=== PATIENT | male | born 1995 | race Caucasian/White ===

== ENCOUNTER 2020-05-27 11:35 | Emergency (ER) | payer SELFPAY ==
[~2020-05-27] VITALS: Ht 190.5 cm; Wt 82.6 kg
[2020-05-27 11:38] VITALS: BP 125/95
--- NOTE | 2020-05-27 14:34 | NUR ---
Patient given discharge instructions and they have confirmed that they understand the instructions. Patient ambulatory with steady gait.
== END 2020-05-27 14:19 | disposition home or self-care (01) ==
LOC: ED 13:34
DX: S62.366A Nondisplaced fracture of neck of fifth metacarpal bone, right hand, initial encounter for closed fracture (principal); M79.641 Pain in right hand; W22.09XA Striking against other stationary object, initial encounter; Y93.89 Activity, other specified; Y92.89 Other specified places as the place of occurrence of the external cause; Y99.8 Other external cause status
CPT/HCPCS: 29125; 99284